=== PATIENT | male | born 1950 | race Caucasian/White ===

== ENCOUNTER 2025-06-04 10:52 | Day surgery (SDC) | payer MEDICARE, OTHER ==
[~2025-06-04] VITALS: Ht 193 cm; Wt 102.0 kg
[2025-06-04] MEDS ORDERED: LOSA50 PO (11:03)
[2025-06-04] MEDS ORDERED: METOPROLOL SUCCINATE (11:03)
[2025-06-04] MEDS ORDERED: ROSUVASTATIN CAL5 MG (11:03)
[2025-06-04] MEDS ORDERED: SPIRONOLACTONE1 EACH (11:04)
== END 2025-06-04 12:30 | disposition home or self-care (01) ==
LOC: ORSCSDS 10:52
PROVIDERS: Specialist
PROC: 0DBE8ZX Excision of Large Intestine, Via Natural or Artificial Opening Endoscopic, Diagnostic (ICD-10-PCS; principal; 2025-06-04 12:00)
DX: R19.7 Diarrhea, unspecified (principal); R19.5 Other fecal abnormalities; K64.8 Other hemorrhoids; E78.5 Hyperlipidemia, unspecified; I10 Essential (primary) hypertension; F17.200 Nicotine dependence, unspecified, uncomplicated; I71.9 Aortic aneurysm of unspecified site, without rupture; Z79.899 Other long term (current) drug therapy
CPT/HCPCS: 88305; 88313; J2704; J7120